=== PATIENT | female | born 1965 | race Caucasian/White ===

== ENCOUNTER → 2017-12-17 | Outpatient (CLI) | payer OTHER ==
--- NOTE | 2017-12-17 19:23 | MR ---
EXAMINATION TYPE: MR thoracic spine wo con DATE OF EXAM: 12/17/2017 COMPARISON: NONE HISTORY: Thoracic pain, old fracture T5-T6 Standard multiplanar, multisequence MRI departmental protocol Multiplanar, multisequence images of the thoracic spine were acquired. FINDINGS: Alignment is anatomic. Vertebral body height appears fairly well preserved. Very minimal loss of supe rior endplate of T7. Loss of disc signal is noted at levels T5-T8 and T11-T12. At T5-T6 there is a small focal central disc herniation resulting in mild anterior compression the sp inal cord. At T6-T7 there is small left paracentral disc herniation abutting the anterior margin the spinal cord . At T7-T8 there is a small focal left paracentral disc herniation. T11-T12 is moderate degenerative disc disease and a central and left paracentral disc small herniatio n. Mild effacement of thecal sac. No foraminal encroachment. Remaining levels demonstrate no disc herniation or canal stenosis. No abnormal signal seen within the visualized spinal cord. . IMPRESSION: 1. Disc herniations at T5-T6, T6-T7, T7-T8 and T11-T12. There is mild anterior compression of the spi nal cord at T5-T6. No abnormal signal within the spinal cord noted.
== END | disposition home or self-care (01) ==
LOC: RADMRIMAIN 17:44
PROVIDERS: ATTEND Family Medicine
DX: M51.25 Other intervertebral disc displacement, thoracolumbar region (principal); G95.20 Unspecified cord compression
CPT/HCPCS: 72146

== ENCOUNTER 2020-11-14 03:06 | Inpatient (IN) | payer OTHER ==
[2020-11-14] MEDS ORDERED: SODIUM CHLORIDE 0.9% 1,000 ML IV STA ×2 (03:24→04:19)
--- NOTE | 2020-11-14 03:24 | ED ---
Arrhythmia/Palpitations HPI - General Chief Complaint: Arrhythmia/Palpitations Stated Complaint: Palpitations Time Seen by Provider: 11/14/20 03:11 Source: patient, family, RN notes reviewed, old records reviewed Mode of arrival: wheelchair Limitations: no limitations - History of Present Illness Initial Comments: This is a 55-year-old female to the ER for evaluation in regards to elevated heart rate. Patient woke up tonight was severely elevated heart rate, patient states his symptoms began while she was admitted today she bent over and felt palpitations or heart her heart racing. She never had any chest pain never had any significant shortness of breath and felt a little lightheaded. Very anxious on arrival on driving over the hospital. Patient became very anxious short of breath and the car ride a little near syncopal. Patient is no medical history takes no medication. No high blood pressure no history of CHF history of diabetes MD Complaint: rapid heart beat, "heart racing" -: hour(s) Context: occurred during rest Arrhythmia History: other (None) Associated Symptoms: shortness of breath, near-syncope, paresthesias Treatments Prior to Arrival: other - Related Data Allergies Allergy/AdvReac Type Severity Reaction Status Date / Time Penicillins Allergy Anaphylaxis Verified 11/14/20 03:15 Review of Systems ROS Statement: Those systems with pertinent positive or pertinent negative responses have been documented in the HPI. ROS Other: All systems not noted in ROS Statement are negative. Past Medical History Additional Past Medical History / Comment(s): heart murmur History of Any Multi-Drug Resistant Organisms: None Reported Past Surgical History: No Surgical Hx Reported Past Psychological History: No Psychological Hx Reported Smoking Status: Former smoker Past Alcohol Use History: Occasional Past Drug Use History: None Reported General Exam Limitations: no limitations General appearance: alert, in no apparent distress Head exam: Present: atraumatic, normocephalic, normal inspection Eye exam: Present: normal appearance, PERRL, EOMI. Absent: scleral icterus, conjunctival injection, periorbital swelling ENT exam: Present: normal exam, mucous membranes moist Neck exam: Present: normal inspection. Absent: tenderness, meningismus, lymphadenopathy Respiratory exam: Present: normal lung sounds bilaterally. Absent: respiratory distress, wheezes, rales, rhonchi, stridor Cardiovascular Exam: Present: regular rate, normal rhythm, normal heart sounds. Absent: systolic murmur, diastolic murmur, rubs, gallop, clicks GI/Abdominal exam: Present: soft, normal bowel sounds. Absent: distended, tenderness, guarding, rebound, rigid Extremities exam: Present: normal inspection, full ROM, normal capillary refill. Absent: tenderness, pedal edema, joint swelling, calf tenderness Back exam: Present: normal inspection Neurological exam: Present: alert, oriented X3, CN II-XII intact Psychiatric exam: Present: normal affect, normal mood Skin exam: Present: warm, dry, intact, normal color. Absent: rash Course Vital Signs 11/14/20 03:09 Temperature 97.8 F Pulse Rate 129 H Respiratory 20 Rate Blood Pressure 145/72 O2 Sat by Pulse 100 Oximetry - Reevaluation(s) Reevaluation #1: 11/14/20 04:21 Medical record is reviewed Reevaluation #2: 11/14/20 04:21 Patient heart rate is improving old patient still does have episodes of tachycardia here - Consultations Consultation #1: Spoke with Dr. Pearson who agrees to admit this patient EKG Findings - EKG Comments: EKG Findings:: EKG shows A. fib 147 QRS 86 QTc 460 Medical Decision Making - Medical Decision Making 55 female with new onset atrial for fibrillation with RVR. Patient's heart has been difficult to control is improving. Patient will admit for cardiology consultation - Lab Data Result diagrams: 11/14/20 03:44 11/14/20 03:44 Lab Results 11/14/20 11/14/20 Range/Units 03:44 03:44 WBC 6.5 (3.8-10.6) k/uL RBC 4.69 (3.80-5.40) m/uL Hgb 13.9 (11.4-16.0) gm/dL Hct 41.7 (34.0-46.0) % MCV 88.9 (80.0-100.0) fL MCH 29.5 (25.0-35.0) pg MCHC 33.2 (31.0-37.0) g/dL RDW 12.9 (11.5-15.5) % Plt Count 287 (150-450) k/uL MPV 7.3 Neutrophils % 39 % Lymphocytes % 49 % Monocytes % 5 % Eosinophils % 4 % Basophils % 1 % Neutrophils # 2.6 (1.3-7.7) k/uL Lymphocytes # 3.1 (1.0-4.8) k/uL Monocytes # 0.4 (0-1.0) k/uL Eosinophils # 0.3 (0-0.7) k/uL Basophils # 0.0 (0-0.2) k/uL Sodium 139 (137-145) mmol/L Potassium 3.8 (3.5-5.1) mmol/L Chloride 105 (98-107) mmol/L Carbon Dioxide 22 (22-30) mmol/L Anion Gap 12 mmol/L BUN 15 (7-17) mg/dL Creatinine 0.72 (0.52-1.04) mg/dL Est GFR (CKD-EPI)AfAm >90 (>60 ml/min/1.73 sqM) Est GFR (CKD-EPI)NonAf >90 (>60 ml/min/1.73 sqM) Glucose 108 H (74-99) mg/dL Calcium 10.3 H (8.4-10.2) mg/dL Magnesium 1.8 (1.6-2.3) mg/dL Total Bilirubin 0.7 (0.2-1.3) mg/dL AST 36 (14-36) U/L ALT 39 H (4-34) U/L Alkaline Phosphatase 56 (38-126) U/L Creatine Kinase 260 H (30-135) U/L Total Protein 7.7 (6.3-8.2) g/dL Albumin 4.6 (3.5-5.0) g/dL Critical Care Time Critical Care Time: Yes Total Critical Care Time: 31 Disposition Clinical Impression: Atrial fibrillation, Atrial fibrillation with RVR Disposition: ADMITTED IP TO THIS HOSP Condition: Good Is patient prescribed a controlled substance at d/c from ED?: No Referrals: Amy Delgado DO [Primary Care Provider] - 1-2 days
[2020-11-14] MEDS ORDERED: DILTIAZEM DRIP BOLUS FROM BAG 1 MG SOLN IV ONE (03:29)
[2020-11-14] MEDS ORDERED: DILTIAZEM 125 MG in SODIUM CHLORIDE 0.9% 100 ML IV SCH (03:30)
[2020-11-14 04:03] LABS: Basophils % (A) 1 %; Eosinophils # (A) 0.3 k/uL (0-0.7); Eosinophils % (A) 4 %; HCT 41.7 % (34.0-46.0); HGB 13.9 gm/dL (11.4-16.0); Lymphocytes # (A) 3.1 k/uL (1.0-4.8); Lymphocytes % (A) 49 %; MCH 29.5 pg (25.0-35.0); MCHC 33.2 g/dL (31.0-37.0); MCV 88.9 fL (80.0-100.0); Mean Platelet Volume 7.3; Monocytes # (A) 0.4 k/uL (0-1.0); Monocytes % (A) 5 %; Neutrophils # (A) 2.6 k/uL (1.3-7.7); Neutrophils % (A) 39 %; Platelet Count 287 k/uL (150-450); RBC 4.69 m/uL (3.80-5.40); RDW 12.9 % (11.5-15.5); WBC 6.5 k/uL (3.8-10.6)
[2020-11-14 04:15] LABS: ALT 39 U/L (4-34); AST 36 U/L (14-36); African American GFR (CKD) >90 (>60 ml/min/1.73 sqM); Albumin 4.6 g/dL (3.5-5.0); Alkaline Phosphatase 56 U/L (38-126); Anion Gap 12 mmol/L; Blood Urea Nitrogen 15 mg/dL (7-17); Calcium 10.3 mg/dL (8.4-10.2); Carbon Dioxide 22 mmol/L (22-30); Chloride 105 mmol/L (98-107); Creatine Kinase 260 U/L (30-135); Glucose 108 mg/dL (74-99); Magnesium 1.8 mg/dL (1.6-2.3); Non-African American GFR(CKD) >90 (>60 ml/min/1.73 sqM); Potassium 3.8 mmol/L (3.5-5.1); Sodium 139 mmol/L (137-145); Total Bilirubin 0.7 mg/dL (0.2-1.3); Total Protein 7.7 g/dL (6.3-8.2)
[2020-11-14] MEDS ORDERED: HEPARIN SODIUM,PORCINE 5,000 UNIT/ML 1 ML VIAL IV PRN (04:17)
[2020-11-14] MEDS ORDERED: HEPARIN SODIUM,PORCINE 5,000 UNIT/ML 1 ML VIAL IV ONE (04:17)
[2020-11-14] MEDS ORDERED: ASPIRIN 81 MG PO STA (04:17)
[2020-11-14] MEDS ORDERED: NITROGLYCERIN SL TABS 0.4 MG TAB SUBLINGUAL PRN (04:17)
[2020-11-14] MEDS ORDERED: SODIUM CHLORIDE 0.9% 500 ML 500 ML IV STA (04:19)
[2020-11-14 04:27] LABS: D-Dimer 0.54 mg/L FEU (<0.60); INR 0.9 (<1.2)
[2020-11-14] MEDS ORDERED: HEPARIN SOD,PORK IN 0.45% NACL 25,000 UNIT in 0.45% NACL 1 250ML.BAG IV SCH (04:30)
[2020-11-14 08:00] LABS: Mean Platelet Volume 7.3; Platelet Count 296 k/uL (150-450)
[2020-11-14] MEDS: METOPROLOL TARTRATE 25 MG TAB PO SCH ×2 (08:29→20:24)
[2020-11-14] MEDS: SODIUM CHLORIDE 0.9% 1,000 ML IV SCH ×3 (08:32→22:58)
--- NOTE | 2020-11-14 12:01 | P.CRDCN ---
History of Present Illness Consult date: 11/14/20 History of present illness: CHIEF COMPLAINT: New onset A. fib HISTORY OF PRESENT ILLNESS: This is a 55-year-old female with a past medical history significant for morbid obesity and former nicotine dependence. Patient does not follow with a ethologist. We have been asked to see the patient in consultation for new onset atrial fibrillation. Patient examined this morning at the bedside. She reports yesterday while she was laying in bed she began having palpitations. She denies having any chest pain or pressure. Denies shortness of breath. She states she tried multiple things at home including yoga and taking a bath but the palpitations persisted so she came to the emergency room for further evaluation. EKG completed in the emergency room revealed atrophic relation with RVR. The patient was started on IV heparin and IV Cardizem. The patient received a dose of metoprolol this morning and her heart rate is currently controlled. Blood pressure currently running on the low side. Patient does give a history of MTHFR and states her sister and niece have history of DVT and PE. DIAGNOSTICS: EKG reveals A. fib with RVR Laboratory data: WBC 6.5. Hemoglobin 13.9. Platelet count 287. D-dimer 0.54. Sodium 139. Potassium 3.8. BUN 15. Creatinine 0.72. Magnesium 1.8. Troponin negative 3. TSH 4.650. Current home cardiac medications include Lasix 20 mg daily as needed REVIEW OF SYSTEMS: At the time of my exam: CONSTITUTIONAL: Denies fever or chills. HEENT: Denies blurred vision, vision changes, or eye pain. Denies hemoptysis CARDIOVASCULAR: Denies chest pain, orthopnea, PND or palpitations RESPIRATORY: No shortness of breath. GASTROINTESTINAL: Denies abdominal pain. Denies nausea or vomiting. HEMATOLOGIC: Denies bleeding disorders. GENITOURINARY: Denies any blood in urine. SKIN: Denies pruitis. Denies rash. PHYSICAL EXAM: VITAL SIGNS: Reviewed. GENERAL: Well-developed in no acute distress. HEENT: Head is normocephalic. Pupils are equal, round. Sclerae anicteric. Mucous membranes of the mouth are moist. Neck supple. No JVD or thyromegaly LUNGS: Respirations even and unlabored. Lungs essentially clear to auscultation bilaterally. HEART: Irregular rate and rhythm. S1 and S2 heard. ABDOMEN: Soft. Nondistended. Nontender. EXTREMITIES: Normal range of motion. No clubbing or cyanosis. Peripheral pulses intact. No lower extremity edema NEUROLOGIC: Awake and alert. Oriented x 3. ASSESSMENT: New-onset atrial fibrillation with RVR Morbid obesity: BMI 40.0 Former nicotine dependence History of MTHFR PLAN: Obtain 2D echo to assess cardiac structure and function Discontinue Cardizem drip Continue metoprolol Continue IV heparin Rx sent to pharmacy for Eliquis. Case management consulted to verify insurance coverage. If Eliquis covered, will discontinue IV heparin and begin Eliquis Continue telemetry monitoring Patient will require outpatient testing for sleep apnea Further recommendations pending patient course Nurse practitioner note has been reviewed by physician. Signing provider agrees with the documented findings, assessment, and plan of care. Past Medical History Additional Past Medical History / Comment(s): heart murmur, torn meniscus, one copy of MTHFR C677T, venous insuffiency occasionally takes lasix/tedhose when traveling History of Any Multi-Drug Resistant Organisms: None Reported Past Surgical History: No Surgical Hx Reported Past Psychological History: No Psychological Hx Reported Smoking Status: Former smoker Past Alcohol Use History: Occasional Past Drug Use History: None Reported - Past Family History Sister(s) Additional Family Medical History / Comment(s): MTHFR Medications and Allergies Home Medications Medication Instructions Recorded Confirmed Type Apixaban [Eliquis] 5 mg PO BID #60 tab 11/14/20 Rx Furosemide [Lasix] 20 mg PO DAILY PRN 11/14/20 11/14/20 History Naproxen 500 mg PO BID PRN 11/14/20 11/14/20 History Allergies Allergy/AdvReac Type Severity Reaction Status Date / Time Penicillins Allergy Anaphylaxis Verified 11/14/20 03:15 Physical Exam Vitals: Vital Signs Temp Pulse Pulse Resp BP BP Pulse Ox 11/14/20 10:41 93 16 112/79 97 11/14/20 10:11 90 16 82/56 98 11/14/20 08:23 98.2 F 122 H 16 105/70 95 11/14/20 07:03 97.7 F 108 H 16 133/92 95 11/14/20 06:10 98.0 F 95 18 108/77 98 11/14/20 05:00 121 H 18 110/60 97 11/14/20 04:00 115 H 16 91/69 97 11/14/20 03:30 136 H 11/14/20 03:09 97.8 F 129 H 20 145/72 100 Intake and Output 11/13/20 11/14/20 11/14/20 22:59 06:59 14:59 Intake Total 560 Balance 560 Intake: Oral 560 Other: Weight 122.9 kg 122.9 kg Results 11/14/20 07:21 11/14/20 03:44 Cardiac Enzymes 11/14/20 11/14/20 11/14/20 Range/Units 03:44 03:44 07:21 AST 36 (14-36) U/L Troponin I <0.012 <0.012 (0.000-0.034) ng/mL 11/14/20 Range/Units 09:09 AST (14-36) U/L Troponin I <0.012 (0.000-0.034) ng/mL Coagulation 11/14/20 11/14/20 Range/Units 03:44 11:21 PT 10.0 (9.0-12.0) sec APTT 24.0 43.7 H (22.0-30.0) sec CBC 11/14/20 11/14/20 Range/Units 03:44 07:21 WBC 6.5 (3.8-10.6) k/uL RBC 4.69 (3.80-5.40) m/uL Hgb 13.9 (11.4-16.0) gm/dL Hct 41.7 (34.0-46.0) % Plt Count 287 296 (150-450) k/uL Comprehensive Metabolic Panel 11/14/20 Range/Units 03:44 Sodium 139 (137-145) mmol/L Potassium 3.8 (3.5-5.1) mmol/L Chloride 105 (98-107) mmol/L Carbon Dioxide 22 (22-30) mmol/L BUN 15 (7-17) mg/dL Creatinine 0.72 (0.52-1.04) mg/dL Glucose 108 H (74-99) mg/dL Calcium 10.3 H (8.4-10.2) mg/dL AST 36 (14-36) U/L ALT 39 H (4-34) U/L Alkaline Phosphatase 56 (38-126) U/L Total Protein 7.7 (6.3-8.2) g/dL Albumin 4.6 (3.5-5.0) g/dL Current Medications Generic Name Dose Route Start Last Admin Trade Name Freq PRN Reason Stop Dose Admin Heparin Sodium (Porcine) 0 unit 11/14/20 04:17 Heparin Sodium,Porcine 5,000 Unit/Ml 1 Ml Vial IV Q6HR PRN Low PTT Protocol Sodium Chloride 1,000 mls @ 100 mls/hr 11/14/20 04:30 11/14/20 08:32 Saline 0.9% IV 100 mls/hr .Q10H DEMARCUS Administration Heparin Sodium/Sodium Chloride 250 mls @ 10.005 mls/hr 11/14/20 04:30 11/14/20 05:29 25,000 unit/ Sodium Chloride IV 8.23 units/kg/hr .Q24H DEMARCUS 10.005 mls/hr Administration Protocol 8.23 UNITS/KG/HR Metoprolol Tartrate 25 mg 11/14/20 09:00 11/14/20 08:29 Metoprolol Tartrate 25 Mg Tab PO 25 mg BID DEMARCUS Administration Nitroglycerin 0.4 mg 11/14/20 04:17 Nitroglycerin Sl Tabs 0.4 Mg Tab SUBLINGUAL Q5M PRN Chest Pain Intake and Output 11/13/20 11/14/20 11/14/20 22:59 06:59 14:59 Intake Total 560 Balance 560 Intake: Oral 560 Other: Weight 122.9 kg 122.9 kg Patient Weight 11/15/20 06:59 Weight 122.9 kg 11/14/20 07:21 11/14/20 03:44
--- NOTE | 2020-11-14 12:17 | P.HPIM ---
History of Present Illness 52-year-old pleasant female came in with the comments of palpitations was started last night found to be in atrial fibrillation with rapid ventricular rate patient doesn't have any other sick and medical problems. Patient had a smoking history and alcohol abuse history. Patient attributes her symptoms to naproxen. Patient was on Cardizem drip which was discontinued earlier today and patient was started on metoprolol or pressure is low normal. Doesn't have any other major medical problems echocardiac exam was obtained. Patient the is presently on IV heparin which will be probably switch to oral Eliquis patient is presently rate controlled but still in atrial fibrillation. Review of Systems REVIEW OF SYSTEMS: CONSTITUTIONAL: No fever, no malaise, no fatigue. HEENT: No recent visual problems or hearing problems. Denied any sore throat. CARDIOVASCULAR: No chest pain, orthopnea, PND, no syncope. PULMONARY: No shortness of breath, no cough, no hemoptysis. GASTROINTESTINAL: No diarrhea, no nausea, no vomiting, no abdominal pain. NEUROLOGICAL: No headaches, no weakness, no numbness. HEMATOLOGICAL: Denies any bleeding or petechiae. GENITOURINARY: Denies any burning micturition, frequency, or urgency. MUSCULOSKELETAL/RHEUMATOLOGICAL: Denies any joint pain, swelling, or any muscle pain. ENDOCRINE: Denies any polyuria or polydipsia. The rest of the 14-point review of systems is negative. Past Medical History Additional Past Medical History / Comment(s): heart murmur, torn meniscus, one copy of MTHFR C677T, venous insuffiency occasionally takes lasix/tedhose when traveling History of Any Multi-Drug Resistant Organisms: None Reported Past Surgical History: No Surgical Hx Reported Past Psychological History: No Psychological Hx Reported Smoking Status: Former smoker Past Alcohol Use History: Occasional Past Drug Use History: None Reported - Past Family History Sister(s) Additional Family Medical History / Comment(s): MTHFR Medications and Allergies Home Medications Medication Instructions Recorded Confirmed Type Apixaban [Eliquis] 5 mg PO BID #60 tab 11/14/20 Rx Furosemide [Lasix] 20 mg PO DAILY PRN 11/14/20 11/14/20 History Naproxen 500 mg PO BID PRN 11/14/20 11/14/20 History Allergies Allergy/AdvReac Type Severity Reaction Status Date / Time Penicillins Allergy Anaphylaxis Verified 11/14/20 03:15 Physical Exam Vitals: Vital Signs Temp Pulse Pulse Resp BP BP Pulse Ox 11/14/20 10:41 93 16 112/79 97 11/14/20 10:11 90 16 82/56 98 11/14/20 08:23 98.2 F 122 H 16 105/70 95 11/14/20 07:03 97.7 F 108 H 16 133/92 95 11/14/20 06:10 98.0 F 95 18 108/77 98 11/14/20 05:00 121 H 18 110/60 97 11/14/20 04:00 115 H 16 91/69 97 11/14/20 03:30 136 H 11/14/20 03:09 97.8 F 129 H 20 145/72 100 Intake and Output 11/13/20 11/14/20 11/14/20 22:59 06:59 14:59 Intake Total 560 Balance 560 Intake: Oral 560 Other: Weight 122.9 kg 122.9 kg PHYSICAL EXAMINATION: GENERAL: The patient is alert and oriented x3, not in any acute distress. Well developed, well nourished. HEENT: Pupils are round and equally reacting to light. EOMI. No scleral icterus. No conjunctival pallor. Normocephalic, atraumatic. No pharyngeal erythema. No t hyromegaly. CARDIOVASCULAR: S1 and S2 present. No murmurs, rubs, or gallops. Irregularly irregular rhythm PULMONARY: Chest is clear to auscultation, no wheezing or crackles. ABDOMEN: Soft, nontender, nondistended, normoactive bowel sounds. No palpable organomegaly. MUSCULOSKELETAL: No joint swelling or deformity. EXTREMITIES: No cyanosis, clubbing, or pedal edema. NEUROLOGICAL: Gross neurological examination did not reveal any focal deficits. SKIN: No rashes. Results CBC & Chem 7: 11/14/20 07:21 11/14/20 03:44 Labs: Abnormal Lab Results - Last 24 Hours (Table) 11/14/20 11/14/20 Range/Units 03:44 11:21 APTT 43.7 H (22.0-30.0) sec Glucose 108 H (74-99) mg/dL Calcium 10.3 H (8.4-10.2) mg/dL ALT 39 H (4-34) U/L Creatine Kinase 260 H (30-135) U/L Thrombosis Risk Factor Assmnt - Choose All That Apply Any of the Below Risk Factors Present?: Yes Each Factor Represents 1 point: Age 41-60 years, Swollen legs (current) Other Risk Factors: No Other congenital or acquired thrombophilia - If yes, enter type in comment: No Thrombosis Risk Factor Assessment Total Risk Factor Score: 2 Thrombosis Risk Factor Assessment Level: Low Risk Assessment and Plan Plan: -New-onset atrial flutter fibrillation with rapid ventricular rate: Patient is presently on metoprolol and IV heparin which will withdraw she shouldn't Eliquis. Off Cardizem. -Obesity: Patient the family will need a will need sleep study for sleep apnea
--- NOTE | 2020-11-14 14:32 | ECHOF ---
Referral Reason:LV function MEASUREMENTS -------- HEIGHT: 175.3 cm WEIGHT: 122.5 kg BP: IVSd: 1.5 cm (0.6 - 1.1) LVIDd: 3.9 cm (3.9 - 5.3) LVPWd: 1.5 cm (0.6 - 1.1) IVSs: 1.4 cm LVIDs: 3.2 cm LVPWs: 1.3 cm RVIDd: 2.8 cm (< 3.3) LAESV Index (A-L): 24.04 ml/m Ao Diam: 2.7 cm (2.0 - 3.7) LA Diam: 3.2 cm (2.7 - 3.8) AV Cusp: 2.1 cm (1.5 - 2.6) EPSS: 0.5 cm RAP: 5.00 mmHg RVSP: 19.76 mmHg MV EF SLOPE: 114.50 mm/s (70 - 150) MV EXCURSION: 14.70 mm (> 18.000) FINDINGS -------- Atrial fibrillation. This was a technically adequate study. The left ventricular size is normal. There is moderate concentric left ventricular hypertrophy. O verall left ventricular systolic function is normal with, an EF between 55 - 60 %. Left ventricular fillimg pressure cannot be estimated due to Atrial fibrillation. The right ventricle is normal in size. The left atrial size is normal. Normal LA size by volume 22+/-6 ml/m2. The right atrial size is normal. The aortic valve is trileaflet and appears structurally normal. The mitral valve is normal. Mild mitral regurgitation is present. The tricuspid valve appears structurally normal. Trace tricuspid regurgitation present. Right ji tricular systolic pressure is normal at < 35 mmHg. There is no pulmonic regurgitation present. The aortic root size is normal. Normal inferior vena cava with normal inspiratory collapse consistent with estimated right atrial pre ssure of 5 mmHg. There is no pericardial effusion. CONCLUSIONS -------- 1. Atrial fibrillation. 2. The left ventricular size is normal. 3. There is moderate concentric left ventricular hypertrophy. 4. Overall left ventricular systolic function is normal with, an EF between 55 - 60 %. 5. Left ventricular fillimg pressure cannot be estimated due to Atrial fibrillation. 6. Mild mitral regurgitation is present. 7. Trace tricuspid regurgitation present. 8. There is no pericardial effusion. UTILIZATION ENGINEER: Arlene Jiménez RDCS
[2020-11-14] MEDS: APIXABAN 5 MG TAB PO SCH ×2 (14:48→20:24)
[2020-11-15 08:25] LABS: Mean Platelet Volume 7.3; Platelet Count 254 k/uL (150-450)
[2020-11-15 08:42] LABS: Cholesterol 177 mg/dL (<200); HDL Cholesterol 55 mg/dL (40-60); LDL Cholesterol,Calculated 97 mg/dL (0-99); Triglycerides 127 mg/dL (<150)
[2020-11-15 08:43] VITALS: BP 119/76; PULSE 77; RESP 16; TEMP 98
[2020-11-15] MEDS: APIXABAN 5 MG TAB PO SCH (08:45)
[2020-11-15] MEDS: METOPROLOL TARTRATE 25 MG TAB PO SCH (08:45)
[2020-11-15] MEDS ORDERED: ASPIRIN 325 MG TAB PO SCH (09:00)
--- NOTE | 2020-11-15 09:57 | P.PN ---
Subjective Progress Note Date: 11/15/20 Principal diagnosis: Paroxysmal atrial fibrillation This is a 55-year-old female patient was admitted to the hospital with palpitations and was diagnosed was A. fib which was new to her. She was seen this morning. She is converted to normal sinus mechanism. Currently she is asymptomatic from the cardiovascular standpoint of view. The echo showed normal left ventricle systolic function Objective - Vital Signs Vital signs: Vital Signs Temp 98 F 11/15/20 08:42 Pulse 77 11/15/20 08:42 Resp 16 11/15/20 08:42 BP 119/76 11/15/20 08:42 Pulse Ox 99 11/15/20 08:42 Intake & Output 11/14/20 11/15/20 11/15/20 18:59 06:59 18:59 Intake Total 1954 Balance 1954 Weight 122.9 kg 120.9 kg Intake: Intake, IV Titration 895 Amount Diltiazem 125 mg In 15 Sodium Chloride 0.9% 100 ml @ 5 MG/HR 5 mls/hr IV .Q24H DEMARCUS Rx#:[id number] Heparin Sod,Pork in 0.45% 80 NaCl 25,000 unit In 0.45 % NaCl 1 250ml.bag @ 8.23 UNITS/KG/HR 10.005 mls/ hr IV .Q24H DEMARCUS Rx#: [id number] Sodium Chloride 0.9% 1, 800 000 ml @ 100 mls/hr IV . Q10H DEMARCUS Rx#:[id number] Oral 1060 Other: Voiding Method Toilet Toilet # Voids 2 0 # Bowel Movements 0 - Constitutional General appearance: Present: no acute distress - Respiratory Respiratory: bilateral: CTA - Cardiovascular Rhythm: regular Heart sounds: normal: S1, S2 - Labs CBC & Chem 7: 11/15/20 07:43 11/14/20 03:44 Labs: Abnormal Lab Results - Last 24 Hours (Table) 11/14/20 Range/Units 11:21 APTT 43.7 H (22.0-30.0) sec Assessment and Plan Assessment: Assessment #1 paroxysmal atrial fibrillation and the patient currently is in normal rhythm #2 preserved left ventricular systolic function Plan #1 the patient can be discharged home #2 follow-up with the patient as an outpatient
--- NOTE | 2020-11-16 13:22 | P.DS ---
Providers Date of admission: 11/14/20 04:17 Expected date of discharge: 11/15/20 Attending physician: Fariba Esqueda Consults: 11/14/20 04:17 Consult Physician Urgent Consulting Provider: Al Reeder Consult Reason/Comments: afib Do you want consulting provider notified?: Yes Primary care physician: Amy Delgado [facility] Course: This is a pleasant 55-year-old female admitted for new-onset atrial fibrillation patient doesn't have any other medical problems patient's chads score is 0. Patient had underwent workup with echocardiogram which did not show any significant abnormality patient had a normal ejection fraction. Patient was evaluated by cardiology patient converted to sinus rhythm just with metoprolol 25 twice a day and patient is being discharged on that and cardiology also is recommending the anticoagulation with Eliquis 5 mg by mouth twice a day and patient will be discharged on this medication. Patient will need sleep study to evaluate for sleep apnea. PHYSICAL EXAMINATION: GENERAL: The patient is alert and oriented x3, not in any acute distress. Well developed, well nourished. HEENT: Pupils are round and equally reacting to light. EOMI. No scleral icterus. No conjunctival pallor. Normocephalic, atraumatic. No pharyngeal erythema. No thyromegaly. CARDIOVASCULAR: S1 and S2 present. No murmurs, rubs, or gallops. PULMONARY: Chest is clear to auscultation, no wheezing or crackles. ABDOMEN: Soft, nontender, nondistended, normoactive bowel sounds. No palpable organomegaly. MUSCULOSKELETAL: No joint swelling or deformity. EXTREMITIES: No cyanosis, clubbing, or pedal edema. NEUROLOGICAL: Gross neurological examination did not reveal any focal deficits. SKIN: No rashes. Final diagnosis new onset atrial fibrillation presently sinus rhythm for rest of medical problems and sluggish course please refer to HPI from the previous day Patient Condition at Discharge: Good Plan - Discharge Summary Discharge Rx Participant: No New Discharge Prescriptions: New Apixaban [Eliquis] 5 mg PO BID #60 tab Metoprolol Tartrate [Lopressor] 25 mg PO BID #60 tab No Action Furosemide [Lasix] 20 mg PO DAILY PRN PRN Reason: Edema Naproxen 500 mg PO BID PRN PRN Reason: Pain Discharge Medication List Apixaban [Eliquis] 5 mg PO BID #60 tab 11/14/20 [Rx] Furosemide [Lasix] 20 mg PO DAILY PRN 11/14/20 [History] Naproxen 500 mg PO BID PRN 11/14/20 [History] Metoprolol Tartrate [Lopressor] 25 mg PO BID #60 tab 11/15/20 [Rx] Follow up Appointment(s)/Referral(s): Ignacio Valle MD [STAFF PHYSICIAN] - 1 Week (office will call you with appointment) Amy Delgado DO [Primary Care Provider] - 11/21/20 9:30 am Patient Instructions/Handouts: A-fib (Atrial Fibrillation) (DC), Safe Use of Anticoagulants (DC) Discharge Disposition: HOME SELF-CARE
== END 2020-11-15 12:48 | disposition home or self-care (01) | DRG 309 ==
LOC: EC 03:06 → 3SCARD 04:17
PROVIDERS: ADMIT Hospitalist; ATTEND Hospitalist
DX: I48.0 Paroxysmal atrial fibrillation (principal); Z68.41 Body mass index [BMI] 40.0-44.9, adult; I48.92 Unspecified atrial flutter; E66.01 Morbid (severe) obesity due to excess calories; F10.10 Alcohol abuse, uncomplicated; Z79.01 Long term (current) use of anticoagulants; Z87.891 Personal history of nicotine dependence; Z88.0 Allergy status to penicillin
CPT/HCPCS: 36415; 80053; 80061; 82550; 83735; 84443; 84484; 85025; 85049; 85379; 85610; 85730; 93005; 93306; 96365; 96366; 96368; 96376; 99291

== ENCOUNTER → 2021-08-17 | Outpatient (CLI) | payer OTHER ==
[~2021-08-17] MED LIST: BAMLANIVIMAB (EUA) 700 MG, ETESEVIMAB (EUA) 1,400 MG in SODIUM CHLORIDE 0.9% 50 ML IVPB ONE; SODIUM CHLORIDE 0.9% 50 ML IVPB ONE; SODIUM CHLORIDE 0.9% 500 ML 500 ML in EMPTY BAG 1 BAG IV PRN
[2021-08-17 11:16] VITALS: RESP 16; TEMP 97.1
[2021-08-17 12:20] VITALS: BP 133/76; PULSE 72
== END ==
LOC: PROCWHC3 10:58
PROVIDERS: ATTEND Physician Assistant
DX: U07.1 COVID-19 (principal); E66.9 Obesity, unspecified; Z68.36 Body mass index [BMI] 36.0-36.9, adult; Z88.0 Allergy status to penicillin
CPT/HCPCS: 96360; J3490; M0245

== ENCOUNTER 2022-10-23 19:36 | Emergency (ER) | payer OTHER ==
[2022-10-23 19:53] VITALS: RESP 16; TEMP 98
--- NOTE | 2022-10-23 20:25 | XR ---
EXAMINATION TYPE: XR ankle complete LT DATE OF EXAM: 10/23/2022 8:22 PM INDICATION: Patient age:Female; 57 years old; Reason for study: trauma, pain; COMPARISON: None TECHNIQUE: The left ankle is imaged in frontal, lateral and oblique projections. FINDINGS: There is no evidence of acute osseous pathology. The joint spaces are well-preserved without evidenc e of subluxation or dislocation. Kager's fat pad is intact. Mild soft tissue swelling around the ankl e. No radiopaque foreign bodies are identified. IMPRESSION: 1. No evidence of acute fracture. 2. Subcutaneous swelling around the ankle likely secondary to underlying soft tissue injury.
--- NOTE | 2022-10-23 20:28 | ED ---
Fall HPI - General Chief Complaint: Fall Stated Complaint: Fall/left ankle injury Time Seen by Provider: 10/23/22 19:43 Source: patient, RN notes reviewed Mode of arrival: wheelchair Limitations: no limitations - History of Present Illness Initial Comments: 57-year-old female presents emergency Department chief complaint left ankle injury. Patient states she slipped on some is no twisting her ankle. Patient complains of left lateral ankle pain no other injuries noted no paresthesias no knee pain no foot pain no prior ankle fracture. - Related Data Home Medications Medication Instructions Recorded Confirmed Furosemide [Lasix] 20 mg PO DAILY PRN 11/14/20 08/17/21 Naproxen 500 mg PO BID PRN 11/14/20 08/17/21 Previous Rx's Medication Instructions Recorded Apixaban [Eliquis] 5 mg PO BID #60 tab 11/14/20 Metoprolol Tartrate [Lopressor] 25 mg PO BID #60 tab 11/15/20 Allergies Allergy/AdvReac Type Severity Reaction Status Date / Time Penicillins Allergy Anaphylaxis Verified 11/14/20 03:15 Review of Systems ROS Statement: Those systems with pertinent positive or pertinent negative responses have been documented in the HPI. ROS Other: All systems not noted in ROS Statement are negative. Past Medical History Additional Past Medical History / Comment(s): heart murmur, torn meniscus, one copy of MTHFR [id number], venous insuffiency occasionally takes lasix/tedhose when traveling History of Any Multi-Drug Resistant Organisms: None Reported Past Surgical History: No Surgical Hx Reported Past Psychological History: No Psychological Hx Reported Smoking Status: Never smoker Past Alcohol Use History: Occasional Past Drug Use History: None Reported - Past Family History Sister(s) Additional Family Medical History / Comment(s): MTHFR General Exam Limitations: no limitations General appearance: alert, in no apparent distress Head exam: Present: atraumatic, normocephalic, normal inspection Eye exam: Present: normal appearance, PERRL, EOMI. Absent: scleral icterus, conjunctival injection, periorbital swelling Respiratory exam: Present: normal lung sounds bilaterally. Absent: respiratory distress, wheezes, rales, rhonchi, stridor Cardiovascular Exam: Present: regular rate, normal rhythm, normal heart sounds. Absent: systolic murmur, diastolic murmur, rubs, gallop, clicks Extremities exam: Present: other (Left ankle lateral malleoli region there is swelling, tenderness with palpation, no foot tenderness no proximal tib-fib tenderness) Course Vital Signs 10/23/22 19:48 Temperature 98.0 F Pulse Rate 81 Respiratory 16 Rate Blood Pressure 118/78 O2 Sat by Pulse 98 Oximetry Medical Decision Making - Medical Decision Making Was pt. sent in by a medical professional or institution (, BRAIN, COMMUNICATIONS ANALYST, urgent care, hospital, or [place] health care facility...) When possible be specific @ -No Did you speak to anyone other than the patient for history (EMS, parent, family, police, friend...)? What history was obtained from this source @ -No Did you review nursing and triage notes (agree or disagree)? Why? @ -I reviewed and agree with nursing and triage notes Were old charts reviewed (outside hosp., previous admission, EMS record, old EKG, old radiological studies, urgent care reports/EKG's, [place] health care facility records)? Report findings @ -No old charts were reviewed Differential Diagnosis (chest pain, altered mental status, abdominal pain women, abdominal pain men, vaginal bleeding, weakness, fever, dyspnea, syncope, headache, dizziness, GI bleed, back pain, seizure, CVA, palpatations, mental health)? @ -Left ankle sprain, left ankle fracture, dislocation EKG interpreted by me (3pts min.). @ -None X-rays interpreted by me (1pt min.). @ -X-ray left ankle shows soft tissue swelling, no acute fracture. CT interpreted by me (1pt min.). @ -None done U/S interpreted by me (1pt. min.). @ -None done What testing was considered but not performed or refused? (CT, X-rays, U/S, labs)? Why? @ -None What meds were considered but not given or refused? Why? @ -None Did you discuss the management of the patient with other professionals (professionals i.e. BRAIN Wasserman, COMMUNICATIONS ANALYST, lab, RT, psych nurse, protective services social worker, lawyer real estate, teacher, combat information center officer, manager of case management)? Give summary @ -No Was smoking cessation discussed for >3mins.? @ -No Was critical care preformed (if so, how long)? @ -No Were there social determinants of health that impacted care today? How? (Homelessness, low income, unemployed, alcoholism, drug addiction, transportation, low edu. Level, literacy, decrease access to med. care, snf, rehab)? @ -No Was there de-escalation of care discussed even if they declined (Discuss DNR or withdrawal of care, Hospice)? DNR status @ -No What co-morbidities impacted this encounter? (DM, HTN, Smoking, COPD, CAD, Cancer, CVA, ARF, Chemo, Hep., AIDS, mental health diagnosis, sleep apnea, morbid obesity)? @ -None Was patient admitted / discharged? Hospital course, mention meds given and route, prescriptions, significant lab abnormalities, going to OR and other pertinent info. @ -Discharged patient's x-ray shows no acute fracture patient is left ankle sprain was placed in a stirrup Aircast will be discharged and follow-up PCP or orthopedics. Undiagnosed new problem with uncertain prognosis? @ -No Drug Therapy requiring intensive monitoring for toxicity (Heparin, Nitro, Insul in, Cardizem)? @ -No Were any procedures done? @ -No Diagnosis/symptom? @ -Left ankle sprain Acute, or Chronic, or Acute on Chronic? @ -Acute Uncomplicated (without systemic symptoms) or Complicated (systemic symptoms)? @ -Uncomplicated Side effects of treatment? @ -No Exacerbation, Progression, or Severe Exacerbation? @ -No Poses a threat to life or bodily function? How? (Chest pain, [place], [place], pneumonia, PE, COPD, DKA, ARF, appy, cholecystitis, CVA, Diverticulitis, Homicidal, Suicidal, threat to staff... and all critical care pts) @ -No Disposition Clinical Impression: Left ankle sprain Disposition: HOME SELF-CARE Condition: Stable Instructions (If sedation given, give patient instructions): Ankle Sprain (ED) Additional Instructions: Please return to the Emergency Department if symptoms worsen or any other concerns. Is patient prescribed a controlled substance at d/c from ED?: No Referrals: Chung Loera MD [Primary Care Provider] - 1-2 days Henry Perry MD [STAFF PHYSICIAN] - 1-2 days Time of Disposition: 20:27
[2022-10-23 20:59] VITALS: BP 124/68; PULSE 78
== END 2022-10-23 20:50 | disposition home or self-care (01) ==
LOC: EC 19:36
DX: S93.402A Sprain of unspecified ligament of left ankle, initial encounter (principal); Z88.0 Allergy status to penicillin; W01.0XXA Fall on same level from slipping, tripping and stumbling without subsequent striking against object, initial encounter
CPT/HCPCS: 99283

== ENCOUNTER → 2023-02-05 | Outpatient (CLI) | payer OTHER ==
[2023-02-05 16:26] LABS: C Reactive Protein 0.3 mg/dL (0.00-0.80); Uric Acid 4.6 mg/dL (2.9-7.7)
[2023-02-05 18:34] LABS: Thyroid Peroxidase Antibodies <9.0 U/mL (0.0-33.0)
[2023-02-05 19:14] LABS: Gliadin AB IgA, Deaminated NEGATIVE (NEGATIVE); Gliadin AB IgA, Unit 0.5 U/mL; Gliadin AB IgG, Deaminated NEGATIVE (NEGATIVE); Gliadin AB IgG, Unit 0.5 U/mL
[2023-02-05 19:55] LABS: T4, Free (Free Thyroxine) 1.32 ng/dL (0.800-1.800)
== END | disposition home or self-care (01) ==
LOC: LABWHC1 10:06
PROVIDERS: ATTEND Family Medicine
DX: M25.50 Pain in unspecified joint (principal); R14.0 Abdominal distension (gaseous); R53.83 Other fatigue
CPT/HCPCS: 36415; 82150; 82306; 82533; 82626; 82784; 83516; 83690; 84439; 84443; 84481; 84550; 86140; 86376

== ENCOUNTER → 2023-03-27 | Outpatient (CLI) | payer OTHER | END | disposition home or self-care (01) | LOC: LABWHC1 12:45 | PROVIDERS: ATTEND Family Medicine | DX: M25.50 Pain in unspecified joint (principal); R53.83 Other fatigue; R14.0 Abdominal distension (gaseous) | CPT/HCPCS: 36415; 82627 ==

== ENCOUNTER → 2025-01-19 | Outpatient (CLI) | payer OTHER | END | disposition home or self-care (01) | LOC: LABWHC1 12:37 | PROVIDERS: ATTEND Registered Nurse | DX: B89 Unspecified parasitic disease (principal) ==